=== PATIENT | female | born 1935 | race Caucasian/White ===

== ENCOUNTER 2017-07-03 19:09 | Inpatient (IN) | payer MEDICARE, BC ==
[~2017-07-03] VITALS: Ht 157.5 cm; Wt 71.2 kg
[~2017-07-03 19:09] MED LIST: ALLO300T2 PO; ESOM40CA PO; FURO-145 PO; GUAI600T PO; LEVO50TA8 PO; LOSA25TA13 PO; METO25TA6 PO; PITA2TAB PO; POTA10CA43 PO; RIVA10TA PO; SOLI5TAB PO; TRAM-351 PO; TRIA0.252 PO
--- NOTE | 2017-07-03 19:24 | NUR ---
PT BIB DAUGHTER, C/O "LT EYE REDNESS/PRESSURE IN HEAD SINCE 1639" PT AOX3 RR EVEN AND UNLABORED. NO SOB NOTED. NAD NOTED. NO NVD AT THIS TIME. PT NOT DIPAHORETIC PT GOWNED AND PLACED ON MONITOR WAITING FOR MD TALLEY. DAUGHTER AT BEDSIDE.
--- NOTE | 2017-07-03 19:30 | NUR ---
DR. GARCIA AT BEDSIDE FOR EVAL.
[2017-07-03 20:11] LABS: BASOPHILS # (AUTO) 0.1 /CMM (0.0-0.2); EOSINOPHILS # (AUTO) 0.1 /CMM (0.0-0.7); EOSINOPHILS % (AUTO) 1.1 % (0.0-6.0); HEMATOCRIT 39 % (33-45); HEMOGLOBIN 12.9 g/dL (11.5-14.8); LYMPHOCYTES # (AUTO) 1.9 /CMM (0.8-4.8); LYMPHOCYTES % (AUTO) 34.6 % (20.0-44.0); MEAN CORPUSCULAR HEMOGLOBIN 28 PG (26.0-33.0); MEAN CORPUSCULAR HGB CONC 33 g/dl (31.0-36.0); MEAN CORPUSCULAR VOLUME 86 fL (82-100); MONOCYTES # (AUTO) 0.6 /CMM (0.1-1.30); MONOCYTES % (AUTO) 9.9 % (2.0-12.0); NEUTROPHILS # (AUTO) 2.9 /CMM (1.8-8.9); NEUTROPHILS % (AUTO) 53.4 % (43.0-81.0); PLATELET COUNT (AUTO) 170 /CMM (150-450); RDW COEFFICIENT OF VARIATION 16.3 (11.5-15.0); RED BLOOD CELL COUNT(AUTO) 4.59 MIL/uL (4.0-5.2); WHITE BLOOD COUNT (AUTO) 5.6 K/uL (4.3-11.0)
[2017-07-03 20:20] LABS: CALCIUM, SERUM 8.8 mg/dL (8.5-10.1); CARBON DIOXIDE 27 mmol/L (21-32); CHLORIDE 105 mmol/L (98-107); CREATININE 1.4 mg/dL (0.6-1.3); GLUCOSE 107 mg/dL (74-106); POTASSIUM 3.8 mmol/L (3.5-5.1); SODIUM SERUM 140 mmol/L (136-145); UREA NITROGEN, BLOOD 20 mg/dL (7-18)
[2017-07-03 20:24] LABS: INR 1.13 (0.87-1.13); PROTHROMBIN TIME 11.9 SECS (9.5-12.7)
--- NOTE | 2017-07-03 20:29 | NUR ---
PT TO RADIOLOGY FOR CT.
--- NOTE | 2017-07-03 20:44 | NUR ---
PT RETURNED FROM CT. APPEARS COMFORTABLE.
[2017-07-03 21:00] VITALS: BP 150/99
--- NOTE | 2017-07-03 21:26 | NUR ---
DR. GARCIA AT BEDSIDE SPEAKING TO PT REGARDING POC / RESULTS
--- NOTE | 2017-07-03 21:36 | NUR ---
REPORT GIVEN TO NENA CRESPO FOR AVERY / TELE 311-1
[2017-07-03] MEDS ORDERED: LOSA50TA21 PO (21:40)
[2017-07-03] MEDS ORDERED: ZOLP12.542 PO (21:40)
[2017-07-03] MEDS ORDERED: ALLO300T2 PO (21:40)
[2017-07-03] MEDS ORDERED: LEVO50TA8 PO (21:40)
[2017-07-03] MEDS ORDERED: FEXO180T94 PO (21:40)
[2017-07-03] MEDS ORDERED: ESOM40CA PO (21:40)
[2017-07-03] MEDS ORDERED: LISI1TAB13 PO (21:40)
[2017-07-03] MEDS ORDERED: METO25TA6 PO (21:40)
[2017-07-03] MEDS ORDERED: PITA2TAB PO (21:40)
--- NOTE | 2017-07-03 21:48 | NUR ---
PT TRANSFERED PER [facility]S PROTOCOL TO [facility] BED 311-1
--- NOTE | 2017-07-03 22:12 | NUR ---
TELE/RN DR. HUBBARD AT BEDSIDE TALKING TO THE PATIENT.
--- NOTE | 2017-07-03 23:08 | NUR ---
TELE/NET UI DEVELOPER DONE PER PROTOCOL.
[2017-07-03] MEDS ORDERED: LEVOTHYROXINE SODIUM 50 MCG TABLET PO SCH (23:30)
[2017-07-03] MEDS: GUAIFENESIN LA 600 MG TABLET.SA PO SCH (23:30)
[2017-07-03] MEDS ORDERED: FUROSEMIDE 20 MG TABLET PO SCH (23:30)
[2017-07-03] MEDS ORDERED: LOSARTAN POTASSIUM 25 MG TABLET PO SCH (23:30)
[2017-07-04] VITALS: BP 171/90
[2017-07-04] MEDS ORDERED: BLOOD SUGAR DIAGNOSTIC 1 EACH STRIP IN SCH
--- NOTE | 2017-07-04 00:25 | NUR ---
TELE/RN SPOKE TO DR. HUBBARD AND CLARIFIED SOME ORDERS. PER DR. HUBBARD 2D ECHO CAN BE DONE TOMORROW. PER DR. HUBBARD PATIENT CAN HAVE AMBIEN, PER PATIENT SHE TAKES AMBIEN TARTRATE E.R. 12.5 MG. WILL PUT IN ORDERS. WILL PUT IN ORDERS.
[2017-07-04] MEDS ORDERED: LOSARTAN POTASSIUM 25 MG TABLET ONE (00:31)
[2017-07-04] MEDS ORDERED: METOPROLOL TARTRATE 25 MG TABLET ONE (00:32)
[2017-07-04] MEDS ORDERED: RIVAROXABAN 10 MG TABLET ONE (00:33)
[2017-07-04] MEDS ORDERED: ZOLPIDEM TARTRATE 5 MG TABLET ONE ×2 (00:51→01:13)
[2017-07-04 00:59] LABS: CALCIUM, SERUM 8.7 mg/dL (8.5-10.1); CARBON DIOXIDE 27 mmol/L (21-32); CHLORIDE 107 mmol/L (98-107); CREATININE 1.1 mg/dL (0.6-1.3); GLUCOSE 96 mg/dL (74-106); POTASSIUM 3.8 mmol/L (3.5-5.1); SODIUM SERUM 143 mmol/L (136-145); UREA NITROGEN, BLOOD 20 mg/dL (7-18)
[2017-07-04] MEDS ORDERED: ZOLPIDEM TARTRATE 5 MG TABLET PO PRN ×2 (01:00→01:30)
[2017-07-04 01:02] LABS: INR 1.11 (0.87-1.13); PROTHROMBIN TIME 11.9 SECS (9.5-12.7)
[2017-07-04 01:12] LABS: ALANINE AMINOTRANSFERASE 16 U/L (12-78); ALBUMIN 3.4 g/dL (3.4-5.0); ALKALINE PHOSPHATASE 65 U/L (46-116); ASPARTATE AMINOTRANSFERASE 18 U/L (15-37); B-TYPE NATRIURETIC PEPTIDE 559 PG/ML (0-125); BILIRUBIN,TOTAL 0.3 mg/dL (0.2-1.0); TOTAL PROTEIN, SERUM 6.4 g/dL (6.4-8.2)
[2017-07-04] MEDS: RIVAROXABAN 10 MG TABLET PO SCH ×2 (01:15→22:23)
[2017-07-04 01:16] LABS: CHOLESTEROL 177 mg/dL (<200); HDL CHOLESTEROL 53 mg/dL (40-60); LDL 98 mg/dL (0-99); THYROID STIMULATING HORMONE 2.102 uIU/mL (0.358-3.74); TRIGLYCERIDES 141 mg/dL (30-150)
[2017-07-04] MEDS: METOPROLOL TARTRATE 25 MG TABLET PO SCH ×2 (01:17→08:57)
--- NOTE | 2017-07-04 01:56 | NUR ---
TELE/RN AMBIEN 12.5 MG WAS NOT ADMINISTERED, PER PATIENT SHE TAKES 12.5 MG AMBIEN E.R. ORDER WAS CHANGED TO AMBIEN 5 MG PO.
[2017-07-04 04:00] VITALS: BP 155/86
--- NOTE | 2017-07-04 06:25 | NUR ---
TELE/RN APPEAR SLEEPING AT THIS TIME, APPEAR COMFORTABLE, NO SIGNS OF DISTRESS NOTED, ALL NEEDS ATTENDED AT THIS TIME. WILL CONTINUE TO MONITOR.
[2017-07-04] MEDS ORDERED: ATORVASTATIN 10 MG TABLET PO SCH (07:30)
--- NOTE | 2017-07-04 07:33 | NUR ---
MECHANICAL MAINTENANCE ENGINEER OPENING NOTE REPORT RECEIVED ON THE PATIENT. PATIENT IS AWAKE, A/O X 4. DENIES PAIN AT THIS TIME. EXTERNAL TELE MONITOR ON. S BRACHYCARDIA 59. BED IS IN LOWEST POSITION, LOCKED, SIDE RAILS UP X 2. CALL LIGHT WITHIN REACH. ALL NEEDS ARE MET. WILL CONTINUE TO MONITOR.
[2017-07-04] MEDS: BLOOD SUGAR DIAGNOSTIC 1 EACH STRIP IN SCH ×4 (07:42→22:32)
[2017-07-04 07:52] LABS: BASOPHILS # (AUTO) 0.1 /CMM (0.0-0.2); BASOPHILS % (AUTO) 1.7 % (0.0-2.0); EOSINOPHILS # (AUTO) 0.1 /CMM (0.0-0.7); EOSINOPHILS % (AUTO) 2.4 % (0.0-6.0); HEMATOCRIT 40 % (33-45); HEMOGLOBIN 12.8 g/dL (11.5-14.8); LYMPHOCYTES # (AUTO) 1.6 /CMM (0.8-4.8); LYMPHOCYTES % (AUTO) 30.6 % (20.0-44.0); MEAN CORPUSCULAR HEMOGLOBIN 28 PG (26.0-33.0); MEAN CORPUSCULAR HGB CONC 32 g/dl (31.0-36.0); MEAN CORPUSCULAR VOLUME 87 fL (82-100); MONOCYTES # (AUTO) 0.5 /CMM (0.1-1.30); MONOCYTES % (AUTO) 10.2 % (2.0-12.0); NEUTROPHILS # (AUTO) 2.9 /CMM (1.8-8.9); NEUTROPHILS % (AUTO) 55.1 % (43.0-81.0); PLATELET COUNT (AUTO) 167 /CMM (150-450); RED BLOOD CELL COUNT(AUTO) 4.58 MIL/uL (4.0-5.2); WHITE BLOOD COUNT (AUTO) 5.4 K/uL (4.3-11.0)
[2017-07-04 08:00] VITALS: BP 132/94
[2017-07-04 08:08] LABS: INR 1.18 (0.87-1.13); PROTHROMBIN TIME 12.8 SECS (9.5-12.7)
[2017-07-04] MEDS ORDERED: LEVOTHYROXINE SODIUM 50 MCG TABLET PO SCH (08:24)
[2017-07-04 08:25] LABS: CALCIUM, SERUM 8.9 mg/dL (8.5-10.1); CARBON DIOXIDE 26 mmol/L (21-32); CHLORIDE 105 mmol/L (98-107); GLUCOSE 89 mg/dL (74-106); POTASSIUM 3.8 mmol/L (3.5-5.1); SODIUM SERUM 141 mmol/L (136-145); UREA NITROGEN, BLOOD 17 mg/dL (7-18)
--- NOTE | 2017-07-04 08:49 | NUR ---
RETAIL ACCOUNT REPRESENTATIVE NOTE VICE [employer] POLICE OFFICER AT THE BEDSIDE.
--- NOTE | 2017-07-04 08:50 | NUR ---
CHARGE NOTES DC TELEMETRY PER DR. CABA.
[2017-07-04] MEDS: GUAIFENESIN LA 600 MG TABLET.SA PO SCH (08:56)
[2017-07-04] MEDS ORDERED: TRIAZOLAM 0.125 MG TABLET PO PRN (09:00)
[2017-07-04] MEDS ORDERED: HYDROCHLOROTHIAZIDE 25 MG TABLET PO SCH (09:00)
[2017-07-04] MEDS ORDERED: ALLOPURINOL 100 MG TABLET PO SCH ×2 (09:00→18:00)
[2017-07-04] MEDS ORDERED: LISINOPRIL (20MG) 20 MG TABLET PO SCH (09:00)
[2017-07-04] MEDS ORDERED: TRAMADOL HCL 50 MG TABLET PO PRN (09:00)
[2017-07-04] MEDS ORDERED: POTASSIUM CHLORIDE 10 MEQ TABLET.SA PO SCH (09:00)
[2017-07-04] MEDS ORDERED: FEXOFENADINE HCL (60 MG) 60 MG TABLET PO SCH (09:00)
--- NOTE | 2017-07-04 10:00 | NUR ---
MS RN NOTE ST AT THE BEDSIDE FOR SWALLOW EVAL.
--- NOTE | 2017-07-04 10:02 | NUR ---
MS RN NOTE PATIENT REFUSED ALL DUE MEDICATION EXCEPT FOR TRACIE. STATED SHE WILL ONLY TAKE THE MEDICATIONS THAT SHE NORMALLY TAKES AT HOME. WILL VERIFY WITH THE PHARMACY/MED RECON NURSE.
--- NOTE | 2017-07-04 11:45 | NUR ---
PATIENT IS BACK FROM THE MRI.
--- NOTE | 2017-07-04 13:00 | NUR ---
STOCK HOUSE WORKER NOTE PER DR CABA TELEMETRY MONITORING RESUMED.
--- NOTE | 2017-07-04 14:23 | NUR ---
OT AT THE BEDSIDE.
--- NOTE | 2017-07-04 15:15 | NUR ---
Social service consult requested by Dr. Forrester for possible stroke. Pt. is a 81 year old female who was admitted to [facility] for possible stroke. SW attempted to meet with pt. bedside to assess pt. However, pt. was asleep. SW will follow up with pt. when she is awake.
[2017-07-04 16:00] VITALS: BP 143/77
--- NOTE | 2017-07-04 16:15 | NUR ---
MS RN NOTE PATIENT'S IV SITE IS INFILTRATED. PATIENT IS REFUSING TO HAVE NEW IV PLACED ON THE LEFT SIDE. NO IV/BLOOD DRAW/ BP MONITORING ALLOWED ON THE R/SIDE. PER CY MIMS NP PATIENT IS OK NOT TO HAVE IV ANGIOCATHETER/ACCESS NOW.
--- NOTE | 2017-07-04 16:23 | NUR ---
MS RN NOTE L/FOREARM IV ANGIOCATHETER REMOVED. TIP INTACT. NO S/S OF INFECTION. NO BLEEDING. OCCLUSIVE DRESSING APPLIED. PATIENT TOLERATED PROCEDURE WELL.
--- NOTE | 2017-07-04 17:30 | NUR ---
MS RN NOTE BLOOD GLUCOSE LEVEL 74MG/DL.
[2017-07-04] MEDS ORDERED: METOPROLOL TARTRATE 25 MG TABLET PO SCH (18:00)
--- NOTE | 2017-07-04 19:30 | NUR ---
VOLLEYBALL PLAYER NOTES RECEIVED PT IN BED, AWAKE, A/O X 4. VERBALLY RESPONSIVE. NO DISTRESS, NO SOB NOTED. NO IV LINE AT THIS TIME, CY MIMS AWARE. DENIES ANY CHEST PAIN OR ANY PAIN AT THIS TIME. NO S/S OF HYPO/ HYPERGLYCEMIA NOTED. ALL NEEDS ATTENDED. CALL LIGHT WITHIN REACH. SAFETY PRECAUTIONS OBSERVED. WILL CONTINUE TO MONITOR.
--- NOTE | 2017-07-04 19:30 | NUR ---
FAMILY LIFE EDUCATOR CLOSING NOTE PATIENT IS RESTING IN BED COMFORTABLY. VS WNL. DENIES PAIN/DISCOMFORT AT THIS TIME. BED IS LOCKED, IN LOWEST POSITION, SIDE RAILS UP X 2. EXTERNAL MONITOR READING SR 63. WILL ENDORSE TO NEXT SHIFT FOR AVERY.
--- NOTE | 2017-07-04 19:35 | NUR ---
PT ON TELE MONITOR SR 62 WITH 1 DEGREE AV BLOCK AT THIS TIME.
[2017-07-04 20:00] VITALS: BP 142/74
[2017-07-04] MEDS ORDERED: AMBIEN PO SCH (22:00)
[2017-07-04] MEDS ORDERED: LOSARTAN POTASSIUM 25 MG TABLET PO SCH (22:00)
[2017-07-04] MEDS ORDERED: KEY,NONCONTROL,TO KEEP IN PYXI 1 EA MC ONE ×2 (22:08→22:17)
[2017-07-05] VITALS: BP 146/77
[2017-07-05 04:00] VITALS: BP 147/78
[2017-07-05] MEDS: BLOOD SUGAR DIAGNOSTIC 1 EACH STRIP IN SCH (05:48)
--- NOTE | 2017-07-05 06:29 | NUR ---
RN MED SURG NOTES PT IN BED, RESTING COMFORTABLY AT THIS TIME,AROUSES EASILY. A/O X 4. VERBALLY RESPONSIVE. NO DISTRESS, NO SOB NOTED. PT IS SINUS RHYTHM 60'S WITH 1ST DEGREE AV BLOCK ON TELE MONITOR. DENIES ANY CHEST PAIN OR ANY PAIN AT THIS TIME. NO S/S OF HYPO/ HYPERGLYCEMIA NOTED. SNACKS OFFERED TO THE PT. NEURO CHECK DONE Q 4 HOURS. ALL NEEDS ATTENDED. CALL LIGHT WITHIN REACH. SAFETY PRECAUTIONS OBSERVED. WILL ENDORSE TO NEXT SHIFT FOR AVERY.
[2017-07-05] MEDS ORDERED: PANTOPRAZOLE 40 MG TABLET.DR PO SCH (07:30)
[2017-07-05 08:00] VITALS: BP 138/71
--- NOTE | 2017-07-05 08:13 | NUR ---
MS/RN OPENING NOTE PATIENT RECEIVED IN BED IN STABLE CONDITION. ALERT AND ORIENTED TIMES 4. NO SIGNS OF ACUTE DISTRESS, NO COMPLAIN OF PAIN OR DISCOMFORT. ALL NEEDS ATTENDED TO. CALL LIGHT WITHIN REACH. WILL CONTINUE TO MONITOR TO ENSURE SAFETY.
--- NOTE | 2017-07-05 08:30 | NUR ---
MS/RN SEEN BY DR CY MIMS SEEN BY DR CY Drew WITH ORDER TO DISCHARGE HOME TODAY.
[2017-07-05] MEDS ORDERED: ACETAMINOPHEN 325 MG TABLET PO ONE (11:30)
[2017-07-05] MEDS ORDERED: ACETAMINOPHEN 650 MG/20.3 ML UDC NG ONE (11:30)
--- NOTE | 2017-07-05 12:00 | NUR ---
MS/DIE CASTER PATIENT DISCHARGE HOME IN STABLE CONDITION. ALERT AND ORIENTED TIMES 4. NO SIGNS OF ACUTE DISTRESS. NO COMPLAIN OF PAIN OR DISCOMFORT. DISCHARGE INSTRUCTIONS AND TEACHING PROVIDED, ALSO MADE AWARE TO MAKE TO FOLLOW UP WITH PRIMARY PHYSICIAN WITHIN A WEEK. PATIENT VERBALIZED UNDERSTANDING OF TEACHINGS. IV SITE REMOVED, NAME BAND REMOVED. ALL NEEDS ATTENDED TO. PICKED UP BY SON AND LEFT VIA PRIVATE CAR.
== END 2017-07-05 12:05 | disposition home or self-care (01) | DRG 125 ==
LOC: ER 19:10 → TELE 21:21 → MED 07-04 12:20 → TELE 07-04 18:00 → MED 07-05 08:32
PROVIDERS: ADMIT Internal Medicine; ATTEND Internal Medicine
DX: H50.00 Unspecified esotropia (principal); I48.91 Unspecified atrial fibrillation; I34.0 Nonrheumatic mitral (valve) insufficiency; I10 Essential (primary) hypertension; H11.32 Conjunctival hemorrhage, left eye; E03.9 Hypothyroidism, unspecified; E78.5 Hyperlipidemia, unspecified; H50.51 Esophoria; M10.9 Gout, unspecified; Z86.73 Personal history of transient ischemic attack (TIA), and cerebral infarction without residual deficits; Z95.2 Presence of prosthetic heart valve; Z85.3 Personal history of malignant neoplasm of breast; Z86.711 Personal history of pulmonary embolism; Z86.718 Personal history of other venous thrombosis and embolism; R79.89 Other specified abnormal findings of blood chemistry
CPT/HCPCS: 36415; 70450-TC; 70544-TC; 70551-TC; 80048-TC; 80053-TC; 80061-TC; 80305; 82962-TC; 83880; 84443-TC; 85025-TC; 85652-TC; 85730-TC; 87081-TC; 92611-TC; 93307-TC; 93880-TC; A4606; Z7610

== ENCOUNTER 2017-07-23 22:09 | Emergency (ER) | payer MEDICARE, BC ==
[~2017-07-23] VITALS: Ht 162.6 cm; Wt 54.4 kg
[~2017-07-23 22:09] MED LIST changes: +FEXO180T94 PO; -FURO-145 PO; -GUAI600T PO; -LOSA25TA13 PO; +LOSA50TA21 PO; -POTA10CA43 PO; -TRAM-351 PO; -TRIA0.252 PO; +ZOLP12.542 PO
--- NOTE | 2017-07-23 22:20 | NUR ---
81 YO FEMALE BB FAMILY. PT IS ALERT X 3, PT STATES "DURING AN EPISODE FOR COUGHING, PT STATES SHE WAS NOT ABLE TO BREATH" DESCRIBES IT "AIR ABLE TO GO IN, BUT NOT OUT. PT AMBULATED TO ER BED WITH STEADY GAIT, SKIN WARM AND DRY, RR EVEN AND UNLABORED. PT GOWNED, PALCED ON CLEANING TEAM MEMBER. AWAITING ORDERS FROM PROVIDER
--- NOTE | 2017-07-23 22:22 | NUR ---
MD SAUNDERS AT BED SIDE FOR EVAL
--- NOTE | 2017-07-23 22:47 | NUR ---
20 LEFT AC IV STARTED, BLOOD SAMPLE OBTAINED AND SENT TO LAB
[2017-07-23 22:55] LABS: BASOPHILS # (AUTO) 0.1 /CMM (0.0-0.2); BASOPHILS % (AUTO) 1.3 % (0.0-2.0); EOSINOPHILS # (AUTO) 0.3 /CMM (0.0-0.7); EOSINOPHILS % (AUTO) 3.3 % (0.0-6.0); HEMATOCRIT 40 % (33-45); HEMOGLOBIN 12.5 g/dL (11.5-14.8); LYMPHOCYTES # (AUTO) 1.8 /CMM (0.8-4.8); LYMPHOCYTES % (AUTO) 23.5 % (20.0-44.0); MEAN CORPUSCULAR HEMOGLOBIN 27 PG (26.0-33.0); MEAN CORPUSCULAR HGB CONC 31 g/dl (31.0-36.0); MEAN CORPUSCULAR VOLUME 87 fL (82-100); MONOCYTES # (AUTO) 0.7 /CMM (0.1-1.30); MONOCYTES % (AUTO) 9.8 % (2.0-12.0); NEUTROPHILS # (AUTO) 4.7 /CMM (1.8-8.9); NEUTROPHILS % (AUTO) 62.1 % (43.0-81.0); PLATELET COUNT (AUTO) 161 /CMM (150-450); RED BLOOD CELL COUNT(AUTO) 4.57 MIL/uL (4.0-5.2); WHITE BLOOD COUNT (AUTO) 7.6 K/uL (4.3-11.0)
[2017-07-23 23:04] LABS: CARBON DIOXIDE 26 mmol/L (21-32); CHLORIDE 105 mmol/L (98-107); GLUCOSE 105 mg/dL (74-106); POTASSIUM 3.9 mmol/L (3.5-5.1); SODIUM SERUM 141 mmol/L (136-145); UREA NITROGEN, BLOOD 10 mg/dL (7-18)
[2017-07-23 23:08] LABS: INR 1.14 (0.87-1.13); PROTHROMBIN TIME 12.3 SECS (9.5-12.7)
[2017-07-23 23:12] LABS: TROPONIN I < 0.017 ng/mL (0.00-0.056)
[2017-07-23 23:16] LABS: ALANINE AMINOTRANSFERASE 16 U/L (12-78); ALBUMIN 3.4 g/dL (3.4-5.0); ALKALINE PHOSPHATASE 65 U/L (46-116); ASPARTATE AMINOTRANSFERASE 14 U/L (15-37); B-TYPE NATRIURETIC PEPTIDE 636 PG/ML (0-125); BILIRUBIN,DIRECT 0.1 mg/dL (0.0-0.2); BILIRUBIN,TOTAL 0.4 mg/dL (0.2-1.0); TOTAL PROTEIN, SERUM 6.9 g/dL (6.4-8.2)
--- NOTE | 2017-07-23 23:41 | NUR ---
MD SAUNDERS AT BED SIDE FOR DC INSTRUCTIONS
[2017-07-24 00:18] VITALS: BP 149/56
--- NOTE | 2017-07-24 00:19 | NUR ---
Patient discharged to home in stable condition. Written and verbal after care instructions given. Patient verbalizes understanding of instruction.IV removed. Catheter intact and site benign. Pressure and 4x4 applied to site. No bleeding noted. PT ambulatory with a steady gait VITAL SIGNS WITHIN NORMAL LIMITS.
== END 2017-07-24 00:19 | disposition home or self-care (01) ==
LOC: ER 22:09
DX: R05 Cough (principal); I10 Essential (primary) hypertension; Z79.01 Long term (current) use of anticoagulants; Z85.3 Personal history of malignant neoplasm of breast; Z86.73 Personal history of transient ischemic attack (TIA), and cerebral infarction without residual deficits; Z95.2 Presence of prosthetic heart valve; Z88.8 Allergy status to other drugs, medicaments and biological substances; Z91.02 Food additives allergy status; Z98.890 Other specified postprocedural states; R06.02 Shortness of breath; I50.9 Heart failure, unspecified
CPT/HCPCS: 36415; 71010-TC; 80048-TC; 80076-TC; 83880; 84484-TC; 85025-TC; 85730-TC; A4606; Z7610

== ENCOUNTER 2024-05-08 22:33 | Emergency (ER) | payer BC, MEDICARE ==
[~2024-05-08] VITALS: Ht 160 cm; Wt 63.5 kg
[~2024-05-08 22:33] MED LIST changes: -LOSA50TA21 PO; +LOSA50TA39 PO; -SOLI5TAB PO; +SOLI5TAB2 PO
[2024-05-08] MEDS ORDERED: ONDANSETRON HCL/PF 4 MG/2 ML VIAL ONE (23:36)
[2024-05-08] MEDS: IV NS 0.9% 1,000 ML BAG IV ONE (23:49)
[2024-05-08 23:57] LABS: BASOPHILS % (AUTO) 0.3 % (0.0-2.0); EOSINOPHILS # (AUTO) 0.1 K/uL (0.0-0.7); EOSINOPHILS % (AUTO) 0.9 % (0.0-6.0); HEMATOCRIT 38 % (33-45); HEMOGLOBIN 12.9 g/dL (11.5-14.8); LYMPHOCYTES # (AUTO) 0.2 K/uL (0.8-4.8); LYMPHOCYTES % (AUTO) 2.3 % (20.0-44.0); MEAN CORPUSCULAR HEMOGLOBIN 35 PG (26.0-33.0); MEAN CORPUSCULAR HGB CONC 34 g/dl (31.0-36.0); MEAN CORPUSCULAR VOLUME 102 fL (82-100); MONOCYTES # (AUTO) 0.3 K/uL (0.1-1.30); NEUTROPHILS # (AUTO) 5.9 K/uL (1.8-8.9); NEUTROPHILS % (AUTO) 91.5 % (43.0-81.0); PLATELET COUNT (AUTO) 133 K/uL (150-450); RED BLOOD CELL COUNT(AUTO) 3.74 MIL/uL (4.0-5.2); RED CELL DISTRIBUTION WIDTH 15.5 % (11.5-15.0); WHITE BLOOD COUNT (AUTO) 6.4 K/uL (4.3-11.0)
[2024-05-09] MEDS: ONDANSETRON HCL/PF 4 MG/2 ML VIAL IVP ONE
[2024-05-09 00:04] LABS: CALCIUM, SERUM 9.3 mg/dL (8.5-10.1); CARBON DIOXIDE 24 mmol/L (21-32); CHLORIDE 104 mmol/L (98-107); CREATININE 0.7 mg/dL (0.6-1.3); GLUCOSE 148 mg/dL (74-106); POTASSIUM 4.1 mmol/L (3.5-5.1); SODIUM SERUM 137 mmol/L (136-145); UREA NITROGEN, BLOOD 29 mg/dL (7-18)
[2024-05-09 00:10] LABS: INR 1.04 (0.91-1.10); PARTIAL THROMBOPLASTIN TIME 26.5 SEC (24.3-34.3)
[2024-05-09 00:18] LABS: ALANINE AMINOTRANSFERASE 17 U/L (12-78); ALBUMIN 2.9 g/dL (3.4-5.0); ALKALINE PHOSPHATASE 49 U/L (46-116); ASPARTATE AMINOTRANSFERASE 15 U/L (15-37); BILIRUBIN,DIRECT 0.2 mg/dL (0.0-0.2); BILIRUBIN,TOTAL 0.8 mg/dL (0.2-1.0); LIPASE 24 U/L (16-77); TOTAL PROTEIN, SERUM 6.4 g/dL (6.4-8.2)
[2024-05-09] MEDS ORDERED: ONDA4TAB11 PO (00:47)
[2024-05-09 01:52] VITALS: BP 125/69; TEMP 98.1; O2SAT 99
== END 2024-05-09 01:52 | disposition home or self-care (01) ==
LOC: ER 22:36
DX: R11.2 Nausea with vomiting, unspecified (principal); R53.1 Weakness; R04.0 Epistaxis; I10 Essential (primary) hypertension; Z85.3 Personal history of malignant neoplasm of breast; Z90.11 Acquired absence of right breast and nipple; Z95.2 Presence of prosthetic heart valve; Z88.8 Allergy status to other drugs, medicaments and biological substances; Z91.018 Allergy to other foods
CPT/HCPCS: 99285; 96361; 85025; 80048; 83690; 80076; 36415; 85730; 96374; J7030; J2405

== ENCOUNTER 2024-07-17 16:58 | Emergency (ER) | payer BC ==
[~2024-07-17] VITALS: Ht 157.5 cm; Wt 64.4 kg
[~2024-07-17 16:58] MED LIST changes: +ONDA4TAB11 PO
[2024-07-17 18:02] LABS: BASOPHILS # (AUTO) 0.1 K/uL (0.0-0.2); BASOPHILS % (AUTO) 2.5 % (0.0-2.0); EOSINOPHILS # (AUTO) 0.1 K/uL (0.0-0.7); EOSINOPHILS % (AUTO) 2.5 % (0.0-6.0); HEMATOCRIT 38 % (33-45); HEMOGLOBIN 12.6 g/dL (11.5-14.8); LYMPHOCYTES # (AUTO) 0.9 K/uL (0.8-4.8); LYMPHOCYTES % (AUTO) 18.3 % (20.0-44.0); MEAN CORPUSCULAR HEMOGLOBIN 34 PG (26.0-33.0); MEAN CORPUSCULAR HGB CONC 33 g/dl (31.0-36.0); MEAN CORPUSCULAR VOLUME 104 fL (82-100); MONOCYTES # (AUTO) 0.5 K/uL (0.1-1.30); NEUTROPHILS # (AUTO) 3.2 K/uL (1.8-8.9); NEUTROPHILS % (AUTO) 66.7 % (43.0-81.0); PLATELET COUNT (AUTO) 140 K/uL (150-450); WHITE BLOOD COUNT (AUTO) 4.7 K/uL (4.3-11.0)
[2024-07-17 18:13] LABS: INR 1.04 (0.91-1.10); PARTIAL THROMBOPLASTIN TIME 24.1 SEC (24.3-34.3); PROTHROMBIN TIME 10.7 SECS (9.2-11.1)
[2024-07-17 18:14] LABS: ALANINE AMINOTRANSFERASE 15 U/L (12-78); ALBUMIN 2.9 g/dL (3.4-5.0); ALKALINE PHOSPHATASE 59 U/L (46-116); ASPARTATE AMINOTRANSFERASE 17 U/L (15-37); BILIRUBIN,DIRECT 0.1 mg/dL (0.0-0.2); BILIRUBIN,TOTAL 0.4 mg/dL (0.2-1.0); CALCIUM, SERUM 8.7 mg/dL (8.5-10.1); CARBON DIOXIDE 30 mmol/L (21-32); CHLORIDE 109 mmol/L (98-107); CREATININE 0.9 mg/dL (0.6-1.3); GLUCOSE 97 mg/dL (74-106); POTASSIUM 3.7 mmol/L (3.5-5.1); SODIUM SERUM 141 mmol/L (136-145); TOTAL PROTEIN, SERUM 5.8 g/dL (6.4-8.2); UREA NITROGEN, BLOOD 21 mg/dL (7-18)
[2024-07-17 19:00] VITALS: BP 140/88; TEMP 98.5; O2SAT 98
[2024-07-17 20:19] LABS: ANISOCYTOSIS 1+; EOSINOPHILS % (MANUAL) 3 % (0-4); LYMPHOCYTES % (MANUAL) 12 % (16-48); MONOCYTES % (MANUAL) 5 % (0-11.0); NEUTROPHILS % (MANUAL) 80 (42-76); PLATELET ESTIMATE ADEQUATE
== END 2024-07-17 19:00 | disposition home or self-care (01) ==
LOC: ER 17:06
DX: I87.2 Venous insufficiency (chronic) (peripheral) (principal); R60.0 Localized edema; I10 Essential (primary) hypertension; Z98.890 Other specified postprocedural states; Z79.899 Other long term (current) drug therapy; Z88.1 Allergy status to other antibiotic agents
CPT/HCPCS: 36415; 80048-TC; 80076-TC; 85025-TC; 85730-TC; 93970-TC

== ENCOUNTER 2025-02-26 18:22 | Inpatient (IN) | payer BC ==
[~2025-02-26] VITALS: Ht 157.5 cm; Wt 58.6 kg
[2025-02-26 18:45] VITALS: O2SAT 96
[2025-02-26] MEDS ORDERED: ACETAMINOPHEN ES 500 MG TABLET ONE (19:03)
[2025-02-26] MEDS: ACETAMINOPHEN ES 500 MG TABLET PO ONE (19:22)
[2025-02-26 19:54] LABS: BASOPHILS # (AUTO) 0.1 K/uL (0.0-0.2); BASOPHILS % (AUTO) 1.3 % (0.0-2.0); EOSINOPHILS # (AUTO) 0.2 K/uL (0.0-0.7); EOSINOPHILS % (AUTO) 2.5 % (0.0-6.0); HEMATOCRIT 39 % (33-45); HEMOGLOBIN 13.1 g/dL (11.5-14.8); LYMPHOCYTES # (AUTO) 0.6 K/uL (0.8-4.8); LYMPHOCYTES % (AUTO) 9.5 % (20.0-44.0); MEAN CORPUSCULAR HEMOGLOBIN 35 PG (26.0-33.0); MEAN CORPUSCULAR HGB CONC 34 g/dl (31.0-36.0); MEAN CORPUSCULAR VOLUME 104 fL (82-100); MONOCYTES # (AUTO) 0.5 K/uL (0.1-1.30); MONOCYTES % (AUTO) 7.4 % (2.0-12.0); NEUTROPHILS # (AUTO) 5.1 K/uL (1.8-8.9); NEUTROPHILS % (AUTO) 79.3 % (43.0-81.0); PLATELET COUNT (AUTO) 145 K/uL (150-450); RED BLOOD CELL COUNT(AUTO) 3.71 MIL/uL (4.0-5.2); RED CELL DISTRIBUTION WIDTH 16.3 % (11.5-15.0); WHITE BLOOD COUNT (AUTO) 6.5 K/uL (4.3-11.0)
[2025-02-26 20:02] LABS: CALCIUM, SERUM 9.1 mg/dL (8.5-10.1); CARBON DIOXIDE 25 mmol/L (21-32); CHLORIDE 102 mmol/L (98-107); CREATININE 1.1 mg/dL (0.6-1.3); GLUCOSE 108 mg/dL (74-106); POTASSIUM 3.4 mmol/L (3.5-5.1); SODIUM SERUM 136 mmol/L (136-145); UREA NITROGEN, BLOOD 23 mg/dL (7-18)
[2025-02-26 20:06] LABS: CREATINE KINASE, TOTAL 40 U/L (26-192)
[2025-02-26 20:07] LABS: ALANINE AMINOTRANSFERASE 25 U/L (12-78); ALBUMIN 2.7 g/dL (3.4-5.0); ALKALINE PHOSPHATASE 64 U/L (46-116); ASPARTATE AMINOTRANSFERASE 22 U/L (15-37); BILIRUBIN,DIRECT 0.3 mg/dL (0.0-0.2); BILIRUBIN,TOTAL 0.8 mg/dL (0.2-1.0); TOTAL PROTEIN, SERUM 6.1 g/dL (6.4-8.2)
[2025-02-26 20:43] LABS: INR 1.23 (0.91-1.10); PROTHROMBIN TIME 12.9 SECS (9.2-11.1)
[2025-02-26] MEDS ORDERED: MAG HYDROX/AL HYDROX/SIMETH 30 ML UDC PO PRN (22:00)
[2025-02-26] MEDS ORDERED: MAGNESIUM HYDROXIDE 30 ML UDC PO PRN (22:00)
[2025-02-26] MEDS ORDERED: ONDANSETRON HCL/PF 4 MG/2 ML VIAL IVP PRN (22:00)
[2025-02-26 22:17] LABS: PARTIAL THROMBOPLASTIN TIME 29.4 SEC (24.3-34.3)
[2025-02-26 22:19] VITALS: BP 153/94; TEMP 97.7; O2SAT 97
[2025-02-26] MEDS: POTASSIUM CHLORIDE 20 MEQ TAB.PRT.SR PO ONE (22:53)
[2025-02-26] MEDS: IV NS 0.9% 1,000 ML IV SCH (22:59)
[2025-02-27] MEDS: TRAZODONE 50 MG TABLET PO ONE (00:16)
[2025-02-27] MEDS: ACETAMINOPHEN 325 MG TABLET PO PRN (01:26)
[2025-02-27] MEDS: TRAMADOL HCL 50 MG TABLET PO PRN (04:55)
[2025-02-27 06:48] LABS: BASOPHILS # (AUTO) 0.1 K/uL (0.0-0.2); BASOPHILS % (AUTO) 1.1 % (0.0-2.0); EOSINOPHILS # (AUTO) 0.1 K/uL (0.0-0.7); EOSINOPHILS % (AUTO) 3.2 % (0.0-6.0); HEMATOCRIT 37 % (33-45); HEMOGLOBIN 12.3 g/dL (11.5-14.8); LYMPHOCYTES # (AUTO) 0.8 K/uL (0.8-4.8); LYMPHOCYTES % (AUTO) 15.9 % (20.0-44.0); MEAN CORPUSCULAR HEMOGLOBIN 34 PG (26.0-33.0); MEAN CORPUSCULAR HGB CONC 33 g/dl (31.0-36.0); MEAN CORPUSCULAR VOLUME 104 fL (82-100); MONOCYTES # (AUTO) 0.4 K/uL (0.1-1.30); MONOCYTES % (AUTO) 7.4 % (2.0-12.0); NEUTROPHILS # (AUTO) 3.4 K/uL (1.8-8.9); NEUTROPHILS % (AUTO) 72.4 % (43.0-81.0); PLATELET COUNT (AUTO) 133 K/uL (150-450); RED BLOOD CELL COUNT(AUTO) 3.59 MIL/uL (4.0-5.2); RED CELL DISTRIBUTION WIDTH 16.1 % (11.5-15.0); WHITE BLOOD COUNT (AUTO) 4.7 K/uL (4.3-11.0)
[2025-02-27 07:06] LABS: CALCIUM, SERUM 8.8 mg/dL (8.5-10.1); MAGNESIUM 1.7 mg/dL (1.8-2.4); PHOSPHORUS 3.5 mg/dL (2.5-4.9); POTASSIUM 3.3 mmol/L (3.5-5.1)
[2025-02-27 07:33] LABS: THYROID STIMULATING HORMONE 3.05 uIU/mL (0.358-3.74)
[2025-02-27 08:00] VITALS: BP 147/71; TEMP 98.1; O2SAT 94
[2025-02-27] MEDS: PANTOPRAZOLE 40 MG VIAL IV SCH (08:25)
[2025-02-27] MEDS: ENSURE ENLIVE CHOC 237 ML CAN PO SCH (08:30)
[2025-02-27] MEDS ORDERED: GEMTESA PO (09:07)
[2025-02-27] MEDS ORDERED: FERR325T23 PO (09:07)
[2025-02-27] MEDS ORDERED: MIDO2.5T PO (09:07)
[2025-02-27] MEDS ORDERED: FOLI0.4T6 PO (09:07)
[2025-02-27] MEDS ORDERED: ZOLP6.2539 PO (09:07)
[2025-02-27] MEDS ORDERED: GABA-532 PO (09:07)
[2025-02-27] MEDS ORDERED: APIX2.5T PO (09:07)
[2025-02-27] MEDS ORDERED: METO50TA16 PO (09:07)
[2025-02-27] MEDS: MINERAL OIL/PETROL OINT 396 GM JAR TP SCH (11:24)
[2025-02-27] MEDS: POTASSIUM CHLORIDE 20 MEQ TAB.PRT.SR PO SCH (12:48)
[2025-02-27] MEDS: MAGNESIUM OXIDE 400 MG TABLET PO ONE (12:48)
== END 2025-02-27 17:28 | disposition home health service (06) | DRG 641 ==
LOC: ER 18:24 → MED 21:26
DX: E86.0 Dehydration (principal); I48.20 Chronic atrial fibrillation, unspecified; E44.0 Moderate protein-calorie malnutrition; S90.31XA Contusion of right foot, initial encounter; E87.6 Hypokalemia; E78.5 Hyperlipidemia, unspecified; E03.9 Hypothyroidism, unspecified; E88.09 Other disorders of plasma-protein metabolism, not elsewhere classified; G89.29 Other chronic pain; I10 Essential (primary) hypertension; K21.9 Gastro-esophageal reflux disease without esophagitis; Z79.01 Long term (current) use of anticoagulants; Z86.73 Personal history of transient ischemic attack (TIA), and cerebral infarction without residual deficits; Z86.711 Personal history of pulmonary embolism; Z95.2 Presence of prosthetic heart valve; Z95.828 Presence of other vascular implants and grafts; R26.9 Unspecified abnormalities of gait and mobility; Z68.23 Body mass index [BMI] 23.0-23.9, adult; Z92.3 Personal history of irradiation; Z85.3 Personal history of malignant neoplasm of breast; I27.20 Pulmonary hypertension, unspecified; S91.311A Laceration without foreign body, right foot, initial encounter; W01.0XXA Fall on same level from slipping, tripping and stumbling without subsequent striking against object, initial encounter; Y93.9 Activity, unspecified; Y92.009 Unspecified place in unspecified non-institutional (private) residence as the place of occurrence of the external cause; M79.671 Pain in right foot; M51.369 Other intervertebral disc degeneration, lumbar region without mention of lumbar back pain or lower extremity pain
CPT/HCPCS: 36415; 70450-TC; 71045-TC; 72131-TC; 73564-TC; 80048-TC; 80076-TC; 82550-TC; 82962-TC; 83735-TC; 84100-TC; 84443-TC; 84484-TC; 85025-TC; 85730-TC; 86850-TC; 97110-TC; 97116-TC; 97530-TC; 97535-TC; A4223; A6253; A6403; G0378; J2470; J7030

== ENCOUNTER 2025-04-02 10:29 | Inpatient (IN) | payer BC ==
[~2025-04-02] VITALS: Ht 157.5 cm; Wt 54.9 kg
[~2025-04-02 10:29] MED LIST changes: +APIX2.5T PO; +FERR325T23 PO; +FOLI0.4T6 PO; +GABA-532 PO; +GEMTESA PO; -LEVO50TA8 PO; -LOSA50TA39 PO; -METO25TA6 PO; +METO50TA16 PO; +MIDO2.5T PO; -ONDA4TAB11 PO; -RIVA10TA PO; -SOLI5TAB2 PO; -ZOLP12.542 PO; +ZOLP6.2539 PO
[2025-04-02 10:59] LABS: BASOPHILS % (AUTO) 0.7 % (0.0-2.0); EOSINOPHILS # (AUTO) 0.1 K/uL (0.0-0.7); EOSINOPHILS % (AUTO) 0.9 % (0.0-6.0); HEMATOCRIT 39 % (33-45); HEMOGLOBIN 12.8 g/dL (11.5-14.8); LYMPHOCYTES # (AUTO) 0.6 K/uL (0.8-4.8); LYMPHOCYTES % (AUTO) 10.3 % (20.0-44.0); MEAN CORPUSCULAR HEMOGLOBIN 34 PG (26.0-33.0); MEAN CORPUSCULAR HGB CONC 33 g/dl (31.0-36.0); MEAN CORPUSCULAR VOLUME 103 fL (82-100); MONOCYTES # (AUTO) 0.6 K/uL (0.1-1.30); MONOCYTES % (AUTO) 9.3 % (2.0-12.0); NEUTROPHILS # (AUTO) 4.7 K/uL (1.8-8.9); NEUTROPHILS % (AUTO) 78.8 % (43.0-81.0); PLATELET COUNT (AUTO) 145 K/uL (150-450); RED BLOOD CELL COUNT(AUTO) 3.78 MIL/uL (4.0-5.2); RED CELL DISTRIBUTION WIDTH 16.2 % (11.5-15.0)
[2025-04-02] MEDS: IV NS 0.9% 1,000 ML BAG IV ONE (11:09)
[2025-04-02 11:18] LABS: CREATININE 1.1 mg/dL (0.6-1.3); UREA NITROGEN, BLOOD 29 mg/dL (7-18)
[2025-04-02 11:19] LABS: INR 1.18 (0.91-1.10); PARTIAL THROMBOPLASTIN TIME 23.5 SEC (24.3-34.3); PROTHROMBIN TIME 12.1 SECS (9.2-11.1)
[2025-04-02] MEDS ORDERED: SERT25TA5 PO (11:30)
[2025-04-02 11:39] LABS: ALANINE AMINOTRANSFERASE 13 U/L (12-78); ALBUMIN 2.9 g/dL (3.4-5.0); ALKALINE PHOSPHATASE 115 U/L (46-116); ASPARTATE AMINOTRANSFERASE 20 U/L (15-37); BILIRUBIN,DIRECT 0.3 mg/dL (0.0-0.2); BILIRUBIN,TOTAL 1.1 mg/dL (0.2-1.0); CALCIUM, SERUM 9.3 mg/dL (8.5-10.1); CARBON DIOXIDE 24 mmol/L (21-32); CHLORIDE 102 mmol/L (98-107); GLUCOSE 183 mg/dL (74-106); POTASSIUM 2.8 mmol/L (3.5-5.1); SODIUM SERUM 137 mmol/L (136-145); TOTAL PROTEIN, SERUM 6.8 g/dL (6.4-8.2)
[2025-04-02] MEDS ORDERED: POTASSIUM CL. PREMIX PERIPHER. 50 ML ONE (12:05)
[2025-04-02] MEDS: PIPERACILLIN /TAZOBACTAM 3.375 G in IV D5W 50 ML IV SCH (12:22)
[2025-04-02] MEDS: VANCOMYCIN 1 GM in IV D5W 250 ML IV SCH (12:34)
[2025-04-02] MEDS: POTASSIUM CL. PREMIX PERIPHER. 50 ML IV SCH (12:45)
[2025-04-02 13:35] VITALS: BP 98/71; TEMP 97.3; O2SAT 99
[2025-04-02 16:05] VITALS: BP 140/90; TEMP 97.3; O2SAT 100
[2025-04-02] MEDS: IV NS 0.9% 1,000 ML IV PRN (16:11)
[2025-04-02] MEDS: POTASSIUM CHLORIDE 20 MEQ POWDER PACKET PO ONE (16:21)
[2025-04-02] MEDS ORDERED: MIDODRINE HCL 2.5 MG TABLET PO SCH (18:00)
[2025-04-02] MEDS: METOPROLOL TARTRATE 50 MG TABLET PO SCH (18:13)
[2025-04-02] MEDS: ONDANSETRON HCL/PF 4 MG/2 ML VIAL IVP PRN (19:34)
[2025-04-02] MEDS: ACETAMINOPHEN 325 MG TABLET PO PRN (19:43)
[2025-04-02 20:00] VITALS: BP 105/80; TEMP 97; O2SAT 99
[2025-04-02] MEDS: ZOLPIDEM TARTRATE 5 MG TABLET PO PRN (21:39)
[2025-04-02] MEDS: ATORVASTATIN 10 MG TABLET PO SCH (21:39)
[2025-04-02] MEDS: ALLOPURINOL 100 MG TABLET PO SCH (21:52)
[2025-04-03] MEDS: MIDODRINE HCL (5MG) 5 MG TABLET PO SCH (06:07)
[2025-04-03 06:27] LABS: BASOPHILS % (AUTO) 0.7 % (0.0-2.0); EOSINOPHILS % (AUTO) 0.4 % (0.0-6.0); HEMATOCRIT 38 % (33-45); HEMOGLOBIN 12.2 g/dL (11.5-14.8); LYMPHOCYTES % (AUTO) 13.6 % (20.0-44.0); MEAN CORPUSCULAR HEMOGLOBIN 33 PG (26.0-33.0); MEAN CORPUSCULAR HGB CONC 32 g/dl (31.0-36.0); MEAN CORPUSCULAR VOLUME 102 fL (82-100); MONOCYTES # (AUTO) 0.9 K/uL (0.1-1.30); MONOCYTES % (AUTO) 12.2 % (2.0-12.0); NEUTROPHILS # (AUTO) 5.3 K/uL (1.8-8.9); NEUTROPHILS % (AUTO) 73.1 % (43.0-81.0); PLATELET COUNT (AUTO) 118 K/uL (150-450); RED BLOOD CELL COUNT(AUTO) 3.72 MIL/uL (4.0-5.2); RED CELL DISTRIBUTION WIDTH 16.1 % (11.5-15.0); WHITE BLOOD COUNT (AUTO) 7.3 K/uL (4.3-11.0)
[2025-04-03 06:46] LABS: CALCIUM, SERUM 8.9 mg/dL (8.5-10.1); CREATININE 1.4 mg/dL (0.6-1.3); MAGNESIUM 1.9 mg/dL (1.8-2.4); PHOSPHORUS 3.5 mg/dL (2.5-4.9); POTASSIUM 4.6 mmol/L (3.5-5.1)
[2025-04-03 06:53] LABS: APPEARANCE,URINE SLIGHTLY CLOUDY (CLEAR); BILIRUBIN,URINE 1+ (NEGATIVE); BLOOD, URINE TRACE-INTA Ery/uL (NEGATIVE); COLOR,URINE YELLOW (YELLOW); KETONES,URINE TRACE mg/dL (NEGATIVE); LEUKOCYTE ESTERASE ,URINE NEGATIVE (NEGATIVE); NITRITE, URINE NEGATIVE (NEGATIVE); PH,URINE 5.5 (5.0-8.0); PROTEIN,URINE 2+ mg/dl (NEGATIVE); UGLUCOSE NEGATIVE (NEGATIVE)
[2025-04-03 07:19] LABS: ADD URINE CULTURE YES; BACTERIA,URINE Moderate /HPF (None Seen); RBC,URINE 0-2 /HPF (0-2); WBC,URINE 0-2 /HPF (0-3)
[2025-04-03 08:00] VITALS: BP 102/70; TEMP 97.6; O2SAT 95
[2025-04-03] MEDS ORDERED: Z GUARD REMEDY 4 OZ OINT TP PRN (08:00)
[2025-04-03] MEDS: PANTOPRAZOLE 40 MG TABLET.DR PO SCH (08:53)
[2025-04-03] MEDS: FERROUS SULFATE (325 MG) 325 MG/TAB TABLET PO SCH (08:53)
[2025-04-03] MEDS: FOLIC ACID 1 MG TABLET PO SCH (08:53)
[2025-04-03] MEDS: SERTRALINE HCL 25 MG TABLET PO SCH (08:53)
[2025-04-03] MEDS: Z GUARD REMEDY 4 OZ OINT TP SCH (08:55)
[2025-04-03] MEDS: MINERAL OIL/PETROL OINT 396 GM JAR TP SCH (08:55)
[2025-04-03 10:12] LABS: CREATININE, URINE 212.3 MG/DL (30.0-125.0); URINE TOTAL PROTEIN 213.7 mg/dL (0-11.9)
[2025-04-03] MEDS ORDERED: VANCOMYCIN 750 MG in IV D5W 250 ML IV SCH (12:00)
[2025-04-03 16:00] VITALS: BP 97/60; TEMP 98.1; O2SAT 95
[2025-04-03 20:00] VITALS: BP 103/65; TEMP 96.7; O2SAT 98
[2025-04-03] MEDS: ENOXAPARIN SODIUM 60 MG/0.6 ML DISP.SYRIN SQ SCH (21:09)
[2025-04-03] MEDS: VANCOMYCIN 750 MG in IV D5W 250 ML IV SCH (23:23)
[2025-04-04 07:06] LABS: BASOPHILS # (AUTO) 0.1 K/uL (0.0-0.2); BASOPHILS % (AUTO) 0.7 % (0.0-2.0); EOSINOPHILS # (AUTO) 0.1 K/uL (0.0-0.7); EOSINOPHILS % (AUTO) 0.8 % (0.0-6.0); HEMATOCRIT 35 % (33-45); HEMOGLOBIN 11.3 g/dL (11.5-14.8); LYMPHOCYTES # (AUTO) 0.9 K/uL (0.8-4.8); LYMPHOCYTES % (AUTO) 10.9 % (20.0-44.0); MEAN CORPUSCULAR HEMOGLOBIN 34 PG (26.0-33.0); MEAN CORPUSCULAR HGB CONC 33 g/dl (31.0-36.0); MEAN CORPUSCULAR VOLUME 104 fL (82-100); MONOCYTES # (AUTO) 0.7 K/uL (0.1-1.30); MONOCYTES % (AUTO) 9.2 % (2.0-12.0); NEUTROPHILS # (AUTO) 6.3 K/uL (1.8-8.9); NEUTROPHILS % (AUTO) 78.4 % (43.0-81.0); PLATELET COUNT (AUTO) 106 K/uL (150-450); RED BLOOD CELL COUNT(AUTO) 3.32 MIL/uL (4.0-5.2); RED CELL DISTRIBUTION WIDTH 16.6 % (11.5-15.0)
[2025-04-04 07:45] LABS: ALBUMIN 2.7 g/dL (3.4-5.0); BILIRUBIN,TOTAL 0.8 mg/dL (0.2-1.0); CALCIUM, SERUM 8.6 mg/dL (8.5-10.1); CREATININE 1.5 mg/dL (0.6-1.3); MAGNESIUM 1.6 mg/dL (1.8-2.4); PHOSPHORUS 4.3 mg/dL (2.5-4.9); POTASSIUM 3.9 mmol/L (3.5-5.1); TOTAL PROTEIN, SERUM 6.2 g/dL (6.4-8.2)
[2025-04-04 08:00] VITALS: BP 105/69; TEMP 97; O2SAT 97
[2025-04-04] MEDS: MAGNESIUM OXIDE 400 MG TABLET PO ONE (09:50)
[2025-04-04 16:00] VITALS: BP 91/50; TEMP 97; O2SAT 97
[2025-04-04] MEDS: IV NS 0.9% 1,000 ML IV PRN (19:09)
[2025-04-04 20:00] VITALS: BP 117/71; TEMP 97.5; O2SAT 100
[2025-04-05 04:00] VITALS: BP 125/83; TEMP 97.8; O2SAT 97
[2025-04-05 07:23] LABS: BASOPHILS # (AUTO) 0.1 K/uL (0.0-0.2); BASOPHILS % (AUTO) 1.8 % (0.0-2.0); EOSINOPHILS # (AUTO) 0.1 K/uL (0.0-0.7); HEMATOCRIT 32 % (33-45); HEMOGLOBIN 10.6 g/dL (11.5-14.8); LYMPHOCYTES # (AUTO) 0.6 K/uL (0.8-4.8); MEAN CORPUSCULAR HEMOGLOBIN 33 PG (26.0-33.0); MEAN CORPUSCULAR HGB CONC 33 g/dl (31.0-36.0); MEAN CORPUSCULAR VOLUME 102 fL (82-100); MONOCYTES # (AUTO) 0.8 K/uL (0.1-1.30); MONOCYTES % (AUTO) 10.8 % (2.0-12.0); NEUTROPHILS # (AUTO) 5.6 K/uL (1.8-8.9); NEUTROPHILS % (AUTO) 78.4 % (43.0-81.0); PLATELET COUNT (AUTO) 104 K/uL (150-450); RED BLOOD CELL COUNT(AUTO) 3.16 MIL/uL (4.0-5.2); RED CELL DISTRIBUTION WIDTH 16.3 % (11.5-15.0); WHITE BLOOD COUNT (AUTO) 7.1 K/uL (4.3-11.0)
[2025-04-05 07:58] LABS: CALCIUM, SERUM 8.5 mg/dL (8.5-10.1); CREATININE 1.2 mg/dL (0.6-1.3); MAGNESIUM 1.5 mg/dL (1.8-2.4); PHOSPHORUS 3.1 mg/dL (2.5-4.9); POTASSIUM 3.4 mmol/L (3.5-5.1)
[2025-04-05 08:00] VITALS: BP 101/82; TEMP 97.3; O2SAT 100
[2025-04-05] MEDS: MAGNESIUM OXIDE 400 MG TABLET PO ONE (09:54)
[2025-04-05] MEDS: POTASSIUM CHLORIDE 20 MEQ TAB.PRT.SR PO SCH (09:58)
[2025-04-05] MEDS ORDERED: APIX5TAB PO (11:41)
[2025-04-05] MEDS ORDERED: DOXY100C2 PO (11:41)
[2025-04-05 14:10] VITALS: BP 99/84; O2SAT 96
== END 2025-04-05 14:47 | disposition home or self-care (01) | DRG 300 ==
LOC: ER 10:37 → UNDOADMIN 11:27 → MEDSG1 11:27 → TELE1 12:09 → MEDSG1 12:54
PROVIDERS: ADMIT Nurse Practitioner Acute Care; ATTEND Nurse Practitioner Acute Care
PROC: 05HB33Z Insertion of Infusion Device into Right Basilic Vein, Percutaneous Approach (ICD-10-PCS; principal; 2025-04-04)
DX: I82.413 Acute embolism and thrombosis of femoral vein, bilateral (principal); E87.20 Acidosis, unspecified; L03.115 Cellulitis of right lower limb; L03.116 Cellulitis of left lower limb; N17.9 Acute kidney failure, unspecified; I82.433 Acute embolism and thrombosis of popliteal vein, bilateral; E03.9 Hypothyroidism, unspecified; R62.7 Adult failure to thrive; Z68.22 Body mass index [BMI] 22.0-22.9, adult; Z09 Encounter for follow-up examination after completed treatment for conditions other than malignant neoplasm; Z87.820 Personal history of traumatic brain injury; Z86.711 Personal history of pulmonary embolism; Z79.01 Long term (current) use of anticoagulants; E78.5 Hyperlipidemia, unspecified; G62.9 Polyneuropathy, unspecified; M10.9 Gout, unspecified; Z88.8 Allergy status to other drugs, medicaments and biological substances; Z91.018 Allergy to other foods; Z95.828 Presence of other vascular implants and grafts; I87.2 Venous insufficiency (chronic) (peripheral); Z95.2 Presence of prosthetic heart valve; Z85.3 Personal history of malignant neoplasm of breast; Z92.3 Personal history of irradiation; Z91.81 History of falling; I27.20 Pulmonary hypertension, unspecified; I11.9 Hypertensive heart disease without heart failure; G89.29 Other chronic pain; M54.50 Low back pain, unspecified; R23.4 Changes in skin texture; M89.8X9 Other specified disorders of bone, unspecified site; Z90.11 Acquired absence of right breast and nipple; E87.6 Hypokalemia
CPT/HCPCS: 36410; 36415; 70450-TC; 71045-TC; 74018; 80048-TC; 80053-TC; 80061-TC; 80076-TC; 80202-TC; 81001; 82550-TC; 82553; 82570-TC; 82607-TC; 83605-TC; 83735-TC; 83970; 84100-TC; 84155; 84165; 84300-TC; 84425; 84484-TC; 85025-TC; 85730-TC; 87040-TC; 87081-TC; 87086-TC; 93307-TC; 93970-TC; 97110-TC; 97116-TC; 97530-TC; A4223; G0378; J1650; J2405; J2543; J3370; J3371; J3480; J7030; J7060